=== PATIENT | female | born 1945 | race Caucasian/White ===

== ENCOUNTER 2019-05-10 14:50 | Emergency (ER) | payer OTHER ==
[2019-05-10 15:59] VITALS: BP 164/100; PULSE 90; TEMP 98.1; BMI 20.5
[2019-05-10] MEDS ORDERED: valACYclovir HCL 500 MG TABLET (FP) PO ONE (17:18)
--- NOTE | 2019-05-10 17:18 | PDOC ---
History of Present Illness - General Chief Complaint: Rash Stated Complaint: FACE RASH Time Seen by Provider: 05/10/19 16:55 History Source: Patient, Family Exam Limitations: No Limitations - History of Present Illness Initial Comments: 74 yo F no significant PMH presents with 1 week of itching to the face associated with malaise, fatigue. In the past 2 days she developed a rash with open lesions that are crusted. She c/o purulent discharge from the L eye with blurry vision. Denies any sick contacts. She states she did not have chicken pox as a child, but did have measles. Past History - Past Medical History Allergies/Adverse Reactions: Allergies Allergy/AdvReac Type Severity Reaction Status Date / Time No Known Allergies Allergy Verified 05/10/19 15:19 Home Medications: Ambulatory Orders Valacyclovir HCl [Valtrex -] 1,000 mg PO TID #21 tablet 05/10/19 COPD: No - Psycho Social/Smoking Cessation Hx Smoking History: Never smoked Hx Alcohol Use: No Drug/Substance Use Hx: No Review of Systems - Review of Systems Able to Perform ROS?: Yes Comments:: GENERAL/CONSTITUTIONAL: No fever or chills. No weakness. HEAD, EYES, EARS, NOSE AND THROAT: +Blurry vision. No ear pain or discharge. No sore throat. CARDIOVASCULAR: No chest pain or shortness of breath. RESPIRATORY: No cough, wheezing, or hemoptysis. GASTROINTESTINAL: No nausea, vomiting, diarrhea or constipation. GENITOURINARY: No dysuria, frequency, or change in urination. MUSCULOSKELETAL: No joint or muscle swelling or pain. No neck or back pain. SKIN: +L-sided facial rash. NEUROLOGIC: No headache, vertigo, loss of consciousness, or change in strength/ sensation. ENDOCRINE: No increased thirst. No abnormal weight change. HEMATOLOGIC/LYMPHATIC: No anemia, easy bleeding, or history of blood clots. ALLERGIC/IMMUNOLOGIC: No hives or skin allergy. *Physical Exam - Vital Signs Last Vital Signs Temp Pulse Resp BP Pulse Ox 98.1 F 90 16 164/100 97 05/10/19 15:05 05/10/19 15:05 05/10/19 15:05 05/10/19 15:05 05/10/19 15:05 - Physical Exam GENERAL: Awake, alert, and fully oriented, in no acute distress HEAD: No signs of trauma EYES: PERRLA, EOMI, sclera anicteric. L eye with periorbital mild swelling and erythema, +conjunctival injection, +purulent discharge. VA L eye 20/50 with glasses, VA R eye 20/40 with glasses. Fluorescein stain- no abnormal uptake. R eye with normal conjunctiva. ENT: Auricles normal inspection, hearing grossly normal, nares patent, oropharynx clear without exudates. Moist mucosa NECK: Normal ROM, supple, no lymphadenopathy, JVD, or masses LUNGS: Breath sounds equal, clear to auscultation bilaterally. No wheezes, and no crackles HEART: Regular rate and rhythm, normal S1 and S2, no murmurs, rubs or gallops ABDOMEN: Soft, nontender, normoactive bowel sounds. No guarding, no rebound. No masses EXTREMITIES: Normal range of motion, no edema. No clubbing or cyanosis. No cords, erythema, or tenderness NEUROLOGICAL: Cranial nerves II through XII grossly intact. Normal speech, normal gait. Motor and sensation intact SKIN: Warm, dry, normal turgor. +Vesicular rash to the L forehead, nose, congregational , and around the eye, dermatomal distribution. +Purulent drainage from the L eye with injection of the conjunctiva. Medical Decision Making - Medical Decision Making 05/10/19 18:06 D/w Dr. Cheung. Cornea is clear, no abnormal uptake of fluorescein. As there is no involvement of the cornea at this point, she recommended close outpatient f/u , will see her in the office tomorrow 10am. Pt DC'd home with valacyclovir. Discharge - Discharge Information Problems reviewed: Yes Clinical Impression/Diagnosis: Herpes zoster ophthalmicus of left eye Herpes zoster Qualifiers: Herpes zoster complications: without complications Qualified Code(s): B02.9 - Zoster without complications Condition: Stable Disposition: HOME - Admission No - Additional Discharge Information Prescriptions: Valacyclovir HCl [Valtrex -] 1,000 mg PO TID #21 tablet - Follow up/Referral Referrals: Jaylin Cheung MD [Staff Physician] - - Patient Discharge Instructions Patient Printed Discharge Instructions: DI for Shingles Additional Instructions: Follow up with Dr. Cheung tomorrow morning at [address] [place] [address] at 10am. Take valacyclovir as prescribed. - Post Discharge Activity
[2019-05-10] MEDS ORDERED: valACYclovir HCL 1000 MG TABLET PO ONE (17:19)
[2019-05-10] MEDS ORDERED: FLUORESCEIN NA 1 EA STRIP OS ONE (17:32)
[2019-05-10] MEDS ORDERED: TETRACAINE 0.5% HCL 0.6ML DROPPER.BOTTLE OS ONE (17:32)
[2019-05-10] MEDS ORDERED: FLUORESCEIN NA 1 EA STRIP ONE (17:34)
[2019-05-10] MEDS ORDERED: valACYclovir HCL 500 MG TABLET (FP) ONE (17:34)
[2019-05-10] MEDS ORDERED: TETRACAINE 0.5% OPHTH SOLN 2 ML BOTTLE ONE (17:34)
== END 2019-05-10 18:18 | disposition home or self-care (01) ==
LOC: FER 14:50
DX: B02.9 Zoster without complications (principal)
CPT/HCPCS: 99282-25